=== PATIENT | male | born 2000 | race Caucasian/White ===

== ENCOUNTER → 2023-03-09 16:58 | Outpatient (CLI) | payer OTHER, SELFPAY ==
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
== END ==
PROVIDERS: Referring Provider Student in an Organized Health Care Education/Training Program; Visit Provider Student in an Organized Health Care Education/Training Program
DX: S43.401A Unspecified sprain of right shoulder joint, initial encounter (principal); V86.59XA Driver of other special all-terrain or other off-road motor vehicle injured in nontraffic accident, initial encounter
CPT/HCPCS: 73030

== ENCOUNTER 2024-03-11 09:43 | Emergency (ER) | payer BC, SELFPAY ==
[2024-03-11 09:45] VITALS: BP 140/77; PULSE 84; O2SAT 98
[2024-03-11 09:52] VITALS: BP 140/77; PULSE 85; RESP 16; TEMP 36.9; O2SAT 97; BMI 28.7
--- NOTE | 2024-03-11 09:55 | EKG_ITS ---
[address] [address] Test Date: 2024-03-11 Pat Name: Alne Knight Department: Room: Gender: Male Occupational Medicine Physician: BEATRIZ : 2000 Requested By: Order Number: [id number] Reading MD: Carlos Krause Measurements Intervals [place] Rate: 85 P: 58 MS: 152 QRS: 33 QRSD: 92 T: 19 QT: 348 QTc: 414 Interpretive Statements Normal sinus rhythm Electronically Signed On 03-12-2024 18:34:01 PST by Carlos Krause
--- NOTE | 2024-03-11 09:56 | ED_ITS ---
HPI - General Adult General Chief complaint: Syncope Stated complaint: Syncope Time Seen by Provider: 03/11/24 09:44 Source: patient Mode of arrival: EMS Limitations: no limitations History of Present Illness HPI narrative: Patient was an otherwise healthy 23-year-old male who is brought in by EMS for evaluation of a syncopal episode. He was at the walk-in clinic to get tested for strep throat. He has been exposed to strep. He was having a sore throat. He was standing in line. States he started to feel lightheaded and passed out. This has happened to him 1 time in the past. He did hit his head. He reports no other injuries from the event. No neck pain. He currently feels normal. Related Data Home Medications Medication Instructions Recorded Confirmed No Known Home Medications 03/09/23 03/09/23 Allergies Allergy/AdvReac Type Severity Reaction Status Date / Time No Known Drug Allergies Allergy Unverified 03/09/23 16:11 Review of Systems Review of Systems ROS Unobtainable: All systems reviewed & are unremarkable except as noted in HPI and below Exam Initial Vital Signs Initial Vital Signs: Vital Signs Pulse Rate 84 03/11/24 09:45 Blood Pressure 140/77 03/11/24 09:45 Pulse Oximetry 98 03/11/24 09:45 Const General: cooperative, comfortable and No ill appearing [facility] Head: normal to inspection, normocephalic, No contusion, No hematoma and No laceration Resp Effort & Inspection: normal respiratory effort Auscultation: clear to auscultation bilaterally Cardio Rate: regular rate Rhythm: regular rhythm GI Inspection: normal to inspection and non-distended Back/Spine/Pelvis Cervical Spine: No cervical spinal tenderness Skin General: no rashes or lesions noted Neuro General: patient alert, patient awake, patient oriented x3 and moves all extremities Extrem General: capillary refill normal Scores [place] CT Head Rule Age <16 years old: No Patient on blood thinners: No Seizure after injury: No Exclusion: Patient NOT Excluded, Proceed to next steps GCS < 15 at 2 hr post trauma: No Suspected open or depressed skull fracture: No Any sign of basilar skull fracture (hemotympanum, raccoon eyes, Good's sign, CSF deion-/rhinorrhea): No Two or more episodes of vomiting: No Age greater or equal to 65 years: No Retrograde amnesia to the event greater or equal to 30 min: No Dangerous Mechanism (pedestrian vs. mv, occupant ejected from mv, fall from >3 ft or > 5 stairs): No Recommendation: CT unnecessary GCS [place] coma scale eye opening: Spontaneous [place] coma scale verbal response: Orientated Cj coma scale motor response: Obey commands Cj coma scale total score: 15 Course Orders Ordered: ED Orders 03/11/24 09:44 EKG-12 Lead Stat 03/11/24 09:47 Strep Grp A by PCR Rapid Stat Throat Culture Stat 03/11/24 10:00 Complete Blood Count AUTO DIFF Stat Comprehensive Metabolic Panel Stat Lipase Stat Vital Signs Vital signs: Vital Signs - 8 hr 03/11/24 09:45 03/11/24 09:45 03/11/24 09:52 Temperature 98.4 F Pulse Rate 84 85 Respiratory Rate 16 Blood Pressure 140/77 140/77 Pulse Oximetry 98 97 Oxygen Delivery Method Room Air Medical Decision Making Lab Data Lab results reviewed: Yes I reviewed the patient's lab results. 03/11/24 10:00 03/11/24 10:00 Labs: Lab Results 03/11/24 03/11/24 Range/Units 09:47 10:00 WBC 5.7 (4.5-11.0) X10^3/uL RBC 5.06 (4.5-5.9) X10^6/uL Hgb 15.5 (13.5-17.5) g/dL Hct 45.1 (41-53) % MCV 89.0 (80-100) fL MCH 30.7 (26-34) PG MCHC 34.5 (30-36) % RDW 13.0 (11.6-14.8) % Plt Count 207 (150-400) X10^3/uL Neut % (Auto) 47.8 L (50-75) % Lymph % (Auto) 32.0 (25-40) % Dickson % (Auto) 15.0 H (3-14) % Eos % (Auto) 4.4 H (2-4) % Baso % (Auto) 0.8 (0-2) % Neut # (Auto) 2700 (0869-6183) /uL Lymph # (Auto) 1800 (5624-0735) /uL Dickson # (Auto) 800 (0-900) /uL Eos # (Auto) 200 (0-450) /uL Baso # (Auto) 0 (0-100) /uL Sodium 138 (137-145) mmol/L Potassium 4.0 (3.4-5.1) mmol/L Chloride 103 (98-107) mmol/L Carbon Dioxide 28 (22-32) mmol/L BUN 15 (9-20) mg/dL Creatinine 1.01 (0.66-1.25) mg/dL Estimated GFR > 60 (>60) mL/min BUN/Creatinine Ratio 14.9 (6-22) Glucose 117 H (70-100) mg/dL Calcium 9.0 (8.4-10.2) mg/dL Total Bilirubin 1.3 (0.2-1.3) mg/dL AST 32 (17-59) IU/L ALT 43 (<50) IU/L Alkaline Phosphatase 55 (38-126) U/L Total Protein 7.3 (6.3-8.2) g/dL Albumin 4.4 (3.5-5.0) g/dL Globulin 2.9 (1.7-4.1) g/dL Albumin/Globulin Ratio 1.5 (1.0-2.8) Lipase 25 (23-300) U/L Group A Strep (PCR) Negative (Negative) ECG Data Attestation: I personally reviewed and interpreted this ECG as follows: Interpretation: Sinus rhythm Ventricular rate of 85 Normal axis Normal QRS Normal QTC No ST T wave changes MDM Narrative Medical decision making narrative: EKGs unremarkable. Labs are unremarkable. Patient was now back to baseline. No indication for head CT. Rapid strep is negative. Throat culture pending. I discussed all this with the patient. We will hold on further workup for now. We will contact patient if his strep test is positive. He was given return precautions. He expressed understanding and agreement. Discharge Plan Departure Patient Disposition: Home Clinical Impression: Syncope Instructions: DI for Syncope in Adults (Fainting) Activity Restrictions/Additional Instructions: There was a throat culture pending at the time of your discharge and we will contact you if we need to start you on antibiotics based on the results of this. Contact your primary doctor for a follow-up. Return to the emergency department for new or worsening symptoms. Prescriptions: No Action No Known Home Medications Referrals: Miscellaneous,Doctor, MD [Primary Care Provider] - Stand Alone Forms: Patient Portal/API/Survey
[2024-03-11 10:00] VITALS: BP 132/79; PULSE 76; RESP 15; O2SAT 99
[2024-03-11 10:02] LABS: Strep Grp A by PCR Rapid Negative (Negative)
[2024-03-11 10:09] LABS: Add Manual Diff / Slide Review NO; Basophils Absolute Auto 0 /uL (0-100); Basophils Percent Auto 0.8 % (0-2); Eosinophils Absolute Auto 200 /uL (0-450); Eosinophils Percent Auto 4.4 % (2-4); Hematocrit 45.1 % (41-53); Hemoglobin 15.5 g/dL (13.5-17.5); Lymphocytes Absolute Auto 1800 /uL (1100-4500); Mean Corpuscular HGB Conc 34.5 % (30-36); Mean Corpuscular Hemoglobin 30.7 PG (26-34); Monocytes Absolute Auto 800 /uL (0-900); Neutrophils Absolute Auto 2700 /uL (1500-7000); Neutrophils Percent Auto 47.8 % (50-75); Platelet Count 207 X10^3/uL (150-400); Red Blood Cell Count 5.06 X10^6/uL (4.5-5.9); White Blood Cell Count 5.7 X10^3/uL (4.5-11.0)
[2024-03-11 10:20] LABS: Alanine Aminotransferase 43 IU/L (<50); Albumin 4.4 g/dL (3.5-5.0); Albumin Globulin Ratio 1.5 (1.0-2.8); Alkaline Phosphatase 55 U/L (38-126); Aspartate Aminotransferase 32 IU/L (17-59); BUN Creatinine Ratio 14.9 (6-22); Bilirubin Total 1.3 mg/dL (0.2-1.3); Blood Urea Nitrogen 15 mg/dL (9-20); Carbon Dioxide 28 mmol/L (22-32); Chloride 103 mmol/L (98-107); Estimated Glomerular Filt Rate > 60 mL/min (>60); Globulin 2.9 g/dL (1.7-4.1); Glucose 117 mg/dL (70-100); HEMOLYSIS < 15 (0-50); Lipase 25 U/L (23-300); Sodium 138 mmol/L (137-145); Total Protein 7.3 g/dL (6.3-8.2)
[2024-03-11 10:30] VITALS: BP 123/82; PULSE 90; RESP 21; O2SAT 95
== END 2024-03-11 10:43 | disposition home or self-care (01) ==
PROVIDERS: Emergency Provider Emergency Medicine
DX: R55 Syncope and collapse (principal)
CPT/HCPCS: 36415; 80053; 83690; 85025; 87070; 87651; 93005; 99283; 99284